=== PATIENT | female | born 1945 | race Caucasian/White ===

== ENCOUNTER 2019-10-07 15:38 | Inpatient (IN) | payer MEDICARE ==
[~2019-10-07] VITALS: Ht 152.4 cm; Wt 70.3 kg
[2019-10-07 16:39] LABS: BG BASE EXCESS -26.6 mmol/L (-2.0-2.0); BG CARBOXYHEMOGLOBIN 0.1 % (0.5-1.5); BG DEOXYHEMOGLOBIN 2.3 % (0.0-5.0); BG FRACTION INSPIRED OXYGEN 21; BG HCO3 ACT 2.8 mmol/L (22.0-26.0); BG METHEMOGLOBIN 0.3 % (0.0-1.5); BG OXYGEN SATURATION 97.7 % (92.0-98.5); BG OXYHEMOGLOBIN 97.3 % (94.0-97.0); BG PCO2 11.6 mmHg (35.0-45.0); BG PH 6.999 (7.350-7.450); BG PO2 142.1 mmHg (75.0-100.0); BG SAMPLE SITE RIGHT RADIAL; BG TOTAL HEMOGLOBIN 11.1 g/dL (12.0-18.0); BG VENT MODE ROOM AIR
[2019-10-07] MEDS ORDERED: SODIUM CHLORIDE 0.9% 1,000 ML IV ONE (16:39)
[2019-10-07 16:50] LABS: BASOPHILS % 0.2 % (0.0-2.0); HEMATOCRIT. 33.9 % (36.0-48.0); HEMOGLOBIN. 10.9 g/dL (12.0-16.0); LYMPHOCYTES % 5.7 % (20.0-50.0); MEAN CORPUSCULAR HEMOGLOBIN 27.7 pg (28.0-32.0); MEAN CORPUSCULAR VOLUME 86.3 fL (81.0-99.0); MEAN PLATELET VOLUME 7.8 fl (7.4-10.4); MONOCYTES % 4.3 % (2.0-8.0); NEUTROPHILS % 89.8 % (40.0-76.0); PLATELET 217 x1000/uL (130-400); RED BLOOD CELL COUNT 3.92 mill/uL (4.2-5.4); RED CELL DISTRIBUTION WIDTH 17.6 % (11.6-14.6)
[2019-10-07 16:54] LABS: CHLORIDE 115 mEq/L (98-107)
[2019-10-07 17:06] LABS: D-DIMER 20.41 mg/L FEU (<0.50); INR 1.1; PROTHROMBIN TIME 11.2 sec (9.6-11.0)
[2019-10-07 17:17] LABS: CLARITY URINE CLEAR (CLEAR); COLOR URINE YELLOW (YELLOW); KETONES URINE TRACE (NEGATIVE); LEUKOCYTE ESTERASE URINE NEGATIVE (NEGATIVE); NITRITE URINE NEGATIVE (NEGATIVE); OCCULT BLOOD URINE TRACE (NEGATIVE); PROTEIN URINE 3+ (NEGATIVE); SPECIFIC GRAVITY URINE 1.015 (1.005-1.030); UROBILINOGEN URINE 0.2 E.U./dL (0.2-1.0)
[2019-10-07] MEDS ORDERED: DEXTROSE 50% WATER 50ML SYRINGE IV ONE (17:45)
[2019-10-07] MEDS ORDERED: INSULIN REGULAR (HUMULIN R) 300UNITS/3ML IV ONE (17:45)
[2019-10-07] MEDS ORDERED: SODIUM BICARBONATE 8.4% 1 MEQ/ML 50ML SYR IV ONE (17:45)
[2019-10-07] MEDS ORDERED: CALCIUM CHLORIDE 1GM/10ML SYR IV ONE (17:45)
[2019-10-07] MEDS ORDERED: PIPERACILLIN/TAZ 3.375G PREMIX 50 ML IV ONE (17:45)
[2019-10-07] MEDS ORDERED: ALBUTEROL (0.083%) 2.5MG/3ML NEB HHN ONE (17:45)
[2019-10-07] MEDS ORDERED: PIPERACILLIN/TAZOBACTAM 3.375 G in DEXT 5% WATER 100 ML IV SCH (18:30)
[2019-10-07] MEDS ORDERED: CLONIDINE 0.1MG TABLET PO PRN (19:15)
[2019-10-07] MEDS ORDERED: ONDANSETRON HCL 4MG/2ML INJ IV PRN (19:15)
[2019-10-07] MEDS ORDERED: HYDRALAZINE 20MG/ML VIAL IV PRN (19:30)
[2019-10-07] MEDS ORDERED: CEFTRIAXONE 1 G PREMIX 50 ML IV SCH (20:00)
[2019-10-07 20:24] LABS: C REACTIVE PROTEIN CARDIAC 6.7 mg/L (0.00-3.00)
[2019-10-07] MEDS ORDERED: SODIUM POLYSTYRENE SULFONATE 15 G/60 ML BOT NG NR (20:34)
[2019-10-07 20:36] LABS: PHOSPHORUS 13.7 mg/dL (2.5-4.9)
[2019-10-07] MEDS ORDERED: AZITHROMYCIN 500 MG in DEXT 5% WATER 250 ML IV SCH (21:00)
[2019-10-07] MEDS: ENOXAPARIN 30MG/0.3ML SYR SUBCUT SCH (21:40)
[2019-10-07] MEDS: SODIUM BICARBONATE 150 MEQ in DEXTROSE 5% WATER 1,000 ML IV SCH (21:49)
[2019-10-07] MEDS ORDERED: SODIUM CHLORIDE 0.9% 250 ML IV NR (23:14)
[2019-10-08] MEDS: NOREPINEPHRINE 8MG in DEXT 5% WATER 250ML (DOUBLE CONC) IV PRN (00:05)
[2019-10-08 05:46] LABS: HEMATOCRIT. 38.9 % (36.0-48.0); HEMOGLOBIN. 12.4 g/dL (12.0-16.0); MEAN CORPUSCULAR HEMOGLOBIN 28.1 pg (28.0-32.0); MEAN PLATELET VOLUME 7.8 fl (7.4-10.4); PLATELET 207 x1000/uL (130-400); RED BLOOD CELL COUNT 4.42 mill/uL (4.2-5.4); RED CELL DISTRIBUTION WIDTH 17.7 % (11.6-14.6)
[2019-10-08 05:53] LABS: CHLORIDE 116 mEq/L (98-107)
[2019-10-08 06:01] LABS: HDL CHOLESTEROL 45 mg/dL (40-59); LDL CHOLESTEROL 47 mg/dL (5-100)
[2019-10-08 06:02] LABS: CREATINE KINASE 316 IU/L (26-192)
[2019-10-08 06:03] LABS: CREATINE KINASE MB FRACTION 15.9 ng/mL (0.5-3.6)
[2019-10-08 06:18] LABS: PHOSPHORUS 11.8 mg/dL (2.5-4.9)
[2019-10-08] MEDS ORDERED: SODIUM BICARBONATE 8.4% 1 MEQ/ML 50ML SYR IV ONE (08:15)
[2019-10-08] MEDS ORDERED: INSULIN REGULAR (DRIP) 100 UNITS in SODIUM CHLORIDE 0.9% 99 ML IV ONE (08:15)
[2019-10-08] MEDS ORDERED: HYDRALAZINE 20MG/ML VIAL IV PRN (08:15)
[2019-10-08 10:05] LABS: BG BASE EXCESS -20.3 mmol/L (-2.0-2.0); BG CARBOXYHEMOGLOBIN 0.4 % (0.5-1.5); BG DEOXYHEMOGLOBIN 1.3 % (0.0-5.0); BG FRACTION INSPIRED OXYGEN 44; BG HCO3 ACT 5.5 mmol/L (22.0-26.0); BG METHEMOGLOBIN 0.3 % (0.0-1.5); BG OXYGEN SATURATION 98.7 % (92.0-98.5); BG PCO2 14.3 mmHg (35.0-45.0); BG PH 7.203 (7.350-7.450); BG PO2 203.3 mmHg (75.0-100.0); BG SAMPLE SITE RIGHT RADIAL; BG TOTAL HEMOGLOBIN 10.4 g/dL (12.0-18.0); BG VENT MODE NASAL CANNULA
[2019-10-08] MEDS: ASPIRIN 81MG TABLET PO SCH (10:15)
[2019-10-08 11:27] LABS: NUCLEATED RED BLOOD CELLS 3 /100 WBC; PLATELET ESTIMATE NORMAL
[2019-10-08] MEDS ORDERED: SODIUM CHLORIDE 0.9% 1,000 ML IV ONE (12:00)
[2019-10-08] MEDS ORDERED: SODIUM BICARBONATE 8.4% 1 MEQ/ML 50ML SYR IV NR ×2 (12:00)
[2019-10-08 12:43] LABS: BG BASE EXCESS -6.2 mmol/L (-2.0-2.0); BG CARBOXYHEMOGLOBIN 0.3 % (0.5-1.5); BG DEOXYHEMOGLOBIN 1.7 % (0.0-5.0); BG FRACTION INSPIRED OXYGEN 44; BG HCO3 ACT 14.4 mmol/L (22.0-26.0); BG METHEMOGLOBIN 0.3 % (0.0-1.5); BG OXYGEN SATURATION 98.3 % (92.0-98.5); BG OXYHEMOGLOBIN 97.7 % (94.0-97.0); BG PCO2 16.9 mmHg (35.0-45.0); BG PH 7.547 (7.350-7.450); BG PO2 178.8 mmHg (75.0-100.0); BG SAMPLE SITE RIGHT RADIAL; BG TOTAL HEMOGLOBIN 9.9 g/dL (12.0-18.0); BG VENT MODE NASAL CANNULA
[2019-10-08] MEDS: SODIUM BICARBONATE 150 MEQ in DEXTROSE 5% WATER 1,000 ML IV SCH ×2 (12:50→13:00)
[2019-10-08] MEDS ORDERED: CEFTRIAXONE 1 G PREMIX 50 ML IV SCH (20:00)
[2019-10-08 20:54] LABS: BG BASE EXCESS -20.2 mmol/L (-2.0-2.0); BG CARBOXYHEMOGLOBIN 0.7 % (0.5-1.5); BG DEOXYHEMOGLOBIN 0.9 % (0.0-5.0); BG FRACTION INSPIRED OXYGEN 100; BG HCO3 ACT 4.8 mmol/L (22.0-26.0); BG METHEMOGLOBIN 0.3 % (0.0-1.5); BG OXYGEN SATURATION 99.1 % (92.0-98.5); BG OXYHEMOGLOBIN 98.1 % (94.0-97.0); BG PCO2 11.6 mmHg (35.0-45.0); BG PH 7.238 (7.350-7.450); BG PO2 454.2 mmHg (75.0-100.0); BG SAMPLE SITE RIGHT RADIAL; BG TOTAL HEMOGLOBIN 10.2 g/dL (12.0-18.0); BG VENT MODE MASK - NRB
[2019-10-08] MEDS ORDERED: AZITHROMYCIN 500 MG in DEXT 5% WATER 250 ML IV SCH (21:00)
[2019-10-08] MEDS: ENOXAPARIN 30MG/0.3ML SYR SUBCUT SCH (21:20)
[2019-10-08 23:58] LABS: CHLORIDE 120 mEq/L (98-107)
[2019-10-09] VITALS (110 sets, daily range): BP systolic 41–166; BP diastolic 23–97
[2019-10-09] LABS: HEMATOCRIT 32.4 % (36.0-48.0); HEMOGLOBIN 10.7 g/dL (12.0-16.0); MEAN CORPUSCULAR HEMOGLOBIN 28.2 pg (28.0-32.0); MEAN CORPUSCULAR VOLUME 84.9 fL (81.0-99.0); PLATELET 107 x1000/uL (130-400); RED BLOOD CELL COUNT 3.81 mill/uL (4.2-5.4); RED CELL DISTRIBUTION WIDTH 17.7 % (11.6-14.6)
[2019-10-09 00:06] LABS: BETA HYDROXYBUTYRATE 0.1 mMol/L (0.0-0.3)
[2019-10-09] MEDS: SODIUM BICARBONATE 150 MEQ in DEXTROSE 5% WATER 1,000 ML IV SCH ×2 (02:12→19:00)
[2019-10-09] MEDS ORDERED: CALCIUM GLUCONATE 1,000 MG in DEXT 5% WATER 90 ML IV ONE (02:30)
[2019-10-09] MEDS: NOREPINEPHRINE 8MG in DEXT 5% WATER 250ML (DOUBLE CONC) IV PRN ×3 (02:38→10:53)
[2019-10-09] MEDS ORDERED: CALCIUM GLUCONATE 1,000 MG in DEXT 5% WATER 90 ML IV SCH ×3 (03:00→20:00)
[2019-10-09] MEDS: PHENYLEPHRINE 40 MG in DEXT 5% WATER 246 ML IV PRN ×2 (07:28→10:52)
[2019-10-09] MEDS: ASPIRIN 81MG TABLET PO SCH (09:00)
[2019-10-09] MEDS ORDERED: INSULIN REGULAR (DRIP) 100 UNITS in SODIUM CHLORIDE 0.9% 100 ML IV SCH (09:08)
[2019-10-09] MEDS: BLOOD SUGAR DIAGNOSTIC STRIP TEST SCH ×14 (09:15→23:15)
[2019-10-09] MEDS ORDERED: DEXTROSE 50% WATER 50ML SYRINGE IV PRN ×2 (09:15)
[2019-10-09 09:33] LABS: BG BASE EXCESS -13.9 mmol/L (-2.0-2.0); BG CARBOXYHEMOGLOBIN 1.7 % (0.5-1.5); BG DEOXYHEMOGLOBIN 1.7 % (0.0-5.0); BG FRACTION INSPIRED OXYGEN 50; BG HCO3 ACT 10.4 mmol/L (22.0-26.0); BG METHEMOGLOBIN 0.1 % (0.0-1.5); BG OXYGEN SATURATION 98.3 % (92.0-98.5); BG OXYHEMOGLOBIN 96.5 % (94.0-97.0); BG PCO2 19.6 mmHg (35.0-45.0); BG PH 7.341 (7.350-7.450); BG PO2 138.8 mmHg (75.0-100.0); BG SAMPLE SITE RIGHT RADIAL; BG TOTAL HEMOGLOBIN 7.6 g/dL (12.0-18.0); BG VENT MODE MASK - VENTI
[2019-10-09 10:06] LABS: BASOPHILS % 0.1 % (0.0-2.0); EOSINOPHILS % 0.1 % (0.0-5.0); HEMATOCRIT. 28.2 % (36.0-48.0); HEMOGLOBIN. 9.9 g/dL (12.0-16.0); LYMPHOCYTES % 8.4 % (20.0-50.0); MEAN CORPUSCULAR HEMOGLOBIN 28.6 pg (28.0-32.0); MEAN CORPUSCULAR VOLUME 81.3 fL (81.0-99.0); MEAN PLATELET VOLUME 8.1 fl (7.4-10.4); MONOCYTES % 5.2 % (2.0-8.0); NEUTROPHILS % 86.2 % (40.0-76.0); PLATELET 79 x1000/uL (130-400); RED BLOOD CELL COUNT 3.47 mill/uL (4.2-5.4); RED CELL DISTRIBUTION WIDTH 17.1 % (11.6-14.6)
[2019-10-09 10:16] LABS: CHLORIDE 111 mEq/L (98-107)
[2019-10-09 10:22] LABS: PHOSPHORUS 6.1 mg/dL (2.5-4.9)
[2019-10-09] MEDS ORDERED: POTASSIUM CHLORIDE INJ 40 MEQ in DEXT 5% WATER 250 ML IV SCH ×2 (11:00→20:00)
[2019-10-09 12:05] LABS: CREATINE KINASE 548 IU/L (26-192)
[2019-10-09] MEDS ORDERED: LEVOFLOXACIN 500MG PREMIX 100 ML IV SCH ×2 (13:30→15:00)
[2019-10-09 13:37] LABS: BG BASE EXCESS -13.7 mmol/L (-2.0-2.0); BG CARBOXYHEMOGLOBIN 1.1 % (0.5-1.5); BG DEOXYHEMOGLOBIN 2.4 % (0.0-5.0); BG FRACTION INSPIRED OXYGEN 50; BG HCO3 ACT 10.9 mmol/L (22.0-26.0); BG METHEMOGLOBIN 0.3 % (0.0-1.5); BG OXYGEN SATURATION 97.6 % (92.0-98.5); BG OXYHEMOGLOBIN 96.2 % (94.0-97.0); BG PCO2 21.8 mmHg (35.0-45.0); BG PH 7.316 (7.350-7.450); BG PO2 116.1 mmHg (75.0-100.0); BG SAMPLE SITE RIGHT RADIAL; BG TOTAL HEMOGLOBIN 8.6 g/dL (12.0-18.0); BG VENT MODE MASK - VENTI
[2019-10-09] MEDS ORDERED: IPRATROPIUM/ALBUTEROL 0.5-3(2.5)MG/3ML NEB HHN PRN (13:45)
[2019-10-09 14:33] LABS: CHLORIDE 111 mEq/L (98-107)
[2019-10-09] MEDS: FAMOTIDINE 20MG/2ML VIAL IV SCH (15:24)
[2019-10-09] MEDS: PROPOFOL 10MG/ML 100ML 100 ML IV PRN ×2 (15:38→21:17)
[2019-10-09] MEDS: PHENYLEPHRINE 80 MG in DEXT 5% WATER 492 ML IV PRN ×2 (15:40→23:30)
[2019-10-09] MEDS ORDERED: VANCOMYCIN 1500MG in DEXTROSE 5% WATER 250ML IV SCH (16:00)
[2019-10-09 16:18] LABS: BG BASE EXCESS -16.1 mmol/L (-2.0-2.0); BG CARBOXYHEMOGLOBIN 0.7 % (0.5-1.5); BG DEOXYHEMOGLOBIN 2.1 % (0.0-5.0); BG FRACTION INSPIRED OXYGEN 60; BG HCO3 ACT 10.7 mmol/L (22.0-26.0); BG METHEMOGLOBIN 0.3 % (0.0-1.5); BG OXYGEN SATURATION 97.9 % (92.0-98.5); BG OXYHEMOGLOBIN 96.9 % (94.0-97.0); BG PCO2 28.2 mmHg (35.0-45.0); BG PH 7.195 (7.350-7.450); BG PO2 134.8 mmHg (75.0-100.0); BG SAMPLE SITE RIGHT RADIAL; BG TIDAL VOLUME(mL) 500 mL; BG TOTAL HEMOGLOBIN 9.3 g/dL (12.0-18.0); BG VENT MODE VENT - A/C; BG VENT RATE 12 set
[2019-10-09] MEDS ORDERED: SODIUM BICARBONATE 8.4% 1 MEQ/ML 50ML SYR IV NR (17:00)
[2019-10-09] MEDS ORDERED: POTASSIUM CHLORIDE INJ 40 MEQ in DEXT 5% WATER 250 ML IV NR (18:00)
[2019-10-09] MEDS ORDERED: LACTULOSE 20G/30ML UDC PO NR (18:00)
[2019-10-09 19:12] LABS: BG BASE EXCESS -11.2 mmol/L (-2.0-2.0); BG CARBOXYHEMOGLOBIN 0.8 % (0.5-1.5); BG DEOXYHEMOGLOBIN 1.1 % (0.0-5.0); BG FRACTION INSPIRED OXYGEN 60; BG HCO3 ACT 13.6 mmol/L (22.0-26.0); BG METHEMOGLOBIN 0.3 % (0.0-1.5); BG OXYGEN SATURATION 98.9 % (92.0-98.5); BG OXYHEMOGLOBIN 97.8 % (94.0-97.0); BG PCO2 27.1 mmHg (35.0-45.0); BG PO2 230.3 mmHg (75.0-100.0); BG SAMPLE SITE RIGHT RADIAL; BG TIDAL VOLUME(mL) 500 mL; BG TOTAL HEMOGLOBIN 8.6 g/dL (12.0-18.0); BG VENT MODE VENT - A/C; BG VENT RATE 12 set
[2019-10-09] MEDS: IPRATROPIUM/ALBUTEROL 0.5-3(2.5)MG/3ML NEB HHN SCH (20:49)
[2019-10-09] MEDS: NOREPINEPHRINE 32 MG in DEXT 5% WATER 468 ML IV PRN (21:19)
[2019-10-10] VITALS (95 sets, daily range): BP systolic 79–136; BP diastolic 37–89
[2019-10-10] MEDS: BLOOD SUGAR DIAGNOSTIC STRIP TEST SCH ×12 (00:15→18:00)
[2019-10-10] MEDS: IPRATROPIUM/ALBUTEROL 0.5-3(2.5)MG/3ML NEB HHN SCH ×4 (01:12→20:23)
[2019-10-10] MEDS: PROPOFOL 10MG/ML 100ML 100 ML IV PRN ×2 (06:00→12:04)
[2019-10-10] MEDS: SODIUM BICARBONATE 150 MEQ in DEXTROSE 5% WATER 1,000 ML IV SCH ×2 (06:01→21:08)
[2019-10-10 06:21] LABS: CHLORIDE 104 mEq/L (98-107)
[2019-10-10 06:23] LABS: BASOPHILS % 0.2 % (0.0-2.0); EOSINOPHILS % 0.6 % (0.0-5.0); HEMATOCRIT. 23.8 % (36.0-48.0); HEMOGLOBIN. 8.3 g/dL (12.0-16.0); LYMPHOCYTES % 10.6 % (20.0-50.0); MEAN CORPUSCULAR VOLUME 80.2 fL (81.0-99.0); MEAN PLATELET VOLUME 8.5 fl (7.4-10.4); MONOCYTES % 3.5 % (2.0-8.0); NEUTROPHILS % 85.1 % (40.0-76.0); PLATELET 59 x1000/uL (130-400); RED BLOOD CELL COUNT 2.97 mill/uL (4.2-5.4); RED CELL DISTRIBUTION WIDTH 17.6 % (11.6-14.6)
[2019-10-10 06:28] LABS: PHOSPHORUS 5.7 mg/dL (2.5-4.9)
[2019-10-10 06:30] LABS: CREATINE KINASE 549 IU/L (26-192)
[2019-10-10] MEDS: PHENYLEPHRINE 80 MG in DEXT 5% WATER 492 ML IV PRN ×3 (06:52→21:55)
[2019-10-10] MEDS ORDERED: MAGNESIUM 2 G PREMIX 50 ML IV NR (08:00)
[2019-10-10 08:14] LABS: BG BASE EXCESS -10.9 mmol/L (-2.0-2.0); BG CARBOXYHEMOGLOBIN 0.8 % (0.5-1.5); BG DEOXYHEMOGLOBIN 4.7 % (0.0-5.0); BG FRACTION INSPIRED OXYGEN 60; BG HCO3 ACT 13.1 mmol/L (22.0-26.0); BG METHEMOGLOBIN 0.3 % (0.0-1.5); BG OXYGEN SATURATION 95.2 % (92.0-98.5); BG OXYHEMOGLOBIN 94.2 % (94.0-97.0); BG PCO2 23.2 mmHg (35.0-45.0); BG PH 7.369 (7.350-7.450); BG SAMPLE SITE RIGHT RADIAL; BG TIDAL VOLUME(mL) 50 mL; BG TOTAL HEMOGLOBIN 8.3 g/dL (12.0-18.0); BG VENT MODE VENT - A/C; BG VENT RATE 12 set
[2019-10-10] MEDS: ASPIRIN 81MG TABLET PO SCH (09:32)
[2019-10-10] MEDS: FAMOTIDINE 20MG/2ML VIAL IV SCH (09:32)
[2019-10-10] MEDS ORDERED: DEXTROSE 50% WATER 50ML SYRINGE IV PRN (11:30)
[2019-10-10] MEDS: INSULIN LISPRO 100 UNITS/ML SUBCUT SCH ×2 (12:00→18:00)
[2019-10-10] MEDS ORDERED: VANCOMYCIN 500 MG PREMIX 100 ML IV SCH (13:00)
[2019-10-11] VITALS (86 sets, daily range): BP systolic 73–149; BP diastolic 43–95
[2019-10-11] MEDS: BLOOD SUGAR DIAGNOSTIC STRIP TEST SCH ×4 (00:58→17:25)
[2019-10-11] MEDS: PROPOFOL 10MG/ML 100ML 100 ML IV PRN ×3 (01:06→22:04)
[2019-10-11] MEDS: NOREPINEPHRINE 32 MG in DEXT 5% WATER 468 ML IV PRN (04:15)
[2019-10-11] MEDS: PHENYLEPHRINE 80 MG in DEXT 5% WATER 492 ML IV PRN ×2 (05:07→12:24)
[2019-10-11 05:43] LABS: HEMATOCRIT. 22.7 % (36.0-48.0); HEMOGLOBIN. 7.9 g/dL (12.0-16.0); MEAN CORPUSCULAR HEMOGLOBIN 27.8 pg (28.0-32.0); MEAN CORPUSCULAR VOLUME 79.9 fL (81.0-99.0); RED BLOOD CELL COUNT 2.85 mill/uL (4.2-5.4); RED CELL DISTRIBUTION WIDTH 17.8 % (11.6-14.6)
[2019-10-11 05:47] LABS: CHLORIDE 106 mEq/L (98-107)
[2019-10-11 05:52] LABS: PHOSPHORUS 4.6 mg/dL (2.5-4.9)
[2019-10-11] MEDS: INSULIN LISPRO 100 UNITS/ML SUBCUT SCH ×4 (06:00→17:25)
[2019-10-11] MEDS: IPRATROPIUM/ALBUTEROL 0.5-3(2.5)MG/3ML NEB HHN SCH ×4 (06:00→20:30)
[2019-10-11 06:46] LABS: PLATELET 43 x1000/uL (130-400)
[2019-10-11] MEDS: ASPIRIN 81MG TABLET PO SCH (08:44)
[2019-10-11] MEDS: FAMOTIDINE 20MG/2ML VIAL IV SCH (08:44)
[2019-10-11 08:53] LABS: BG BASE EXCESS 0.3 mmol/L (-2.0-2.0); BG CARBOXYHEMOGLOBIN 0.7 % (0.5-1.5); BG DEOXYHEMOGLOBIN 1.1 % (0.0-5.0); BG FRACTION INSPIRED OXYGEN 60; BG HCO3 ACT 23.6 mmol/L (22.0-26.0); BG METHEMOGLOBIN 0.3 % (0.0-1.5); BG OXYGEN SATURATION 98.9 % (92.0-98.5); BG OXYHEMOGLOBIN 97.9 % (94.0-97.0); BG PCO2 32.3 mmHg (35.0-45.0); BG PH 7.482 (7.350-7.450); BG PO2 240.6 mmHg (75.0-100.0); BG SAMPLE SITE RIGHT RADIAL; BG TIDAL VOLUME(mL) 500 mL; BG VENT MODE VENT - A/C; BG VENT RATE 12 set
[2019-10-11] MEDS ORDERED: CEFEPIME 1,000 MG in DEXTROSE 5% WATER 50 ML IV SCH (10:30)
[2019-10-11] MEDS ORDERED: MAGNESIUM 2 G PREMIX 50 ML IV SCH (11:00)
[2019-10-11] MEDS ORDERED: LEVOFLOXACIN 250MG PREMIX 50 ML IV SCH (11:00)
[2019-10-11] MEDS: CEFEPIME 1,000 MG in DEXTROSE 5% WATER 50 ML IV SCH (12:24)
[2019-10-11] MEDS ORDERED: VANCOMYCIN 1250MG in DEXTROSE 5% WATER 250ML IV SCH (13:30)
[2019-10-11] MEDS: SODIUM BICARBONATE 150 MEQ in DEXTROSE 5% WATER 1,000 ML IV SCH (13:33)
[2019-10-11 14:16] LABS: PLATELET ESTIMATE MARKEDLY DECREASED
[2019-10-12] VITALS (86 sets, daily range): BP systolic 88–139; BP diastolic 48–104
[2019-10-12] MEDS: PHENYLEPHRINE 80 MG in DEXT 5% WATER 492 ML IV PRN ×2 (00:27→15:30)
[2019-10-12] MEDS: IPRATROPIUM/ALBUTEROL 0.5-3(2.5)MG/3ML NEB HHN SCH ×5 (00:28→20:39)
[2019-10-12] MEDS: SODIUM BICARBONATE 150 MEQ in DEXTROSE 5% WATER 1,000 ML IV SCH (04:32)
[2019-10-12 05:29] LABS: HEMATOCRIT. 21.2 % (36.0-48.0); HEMOGLOBIN. 7.2 g/dL (12.0-16.0); MEAN CORPUSCULAR HEMOGLOBIN 27.2 pg (28.0-32.0); MEAN CORPUSCULAR VOLUME 80.4 fL (81.0-99.0); MEAN PLATELET VOLUME 8.9 fl (7.4-10.4); RED BLOOD CELL COUNT 2.64 mill/uL (4.2-5.4); RED CELL DISTRIBUTION WIDTH 17.8 % (11.6-14.6)
[2019-10-12 05:50] LABS: CHLORIDE 97 mEq/L (98-107)
[2019-10-12 05:54] LABS: PHOSPHORUS 4.6 mg/dL (2.5-4.9)
[2019-10-12] MEDS: INSULIN LISPRO 100 UNITS/ML SUBCUT SCH ×4 (06:00→18:00)
[2019-10-12] MEDS: BLOOD SUGAR DIAGNOSTIC STRIP TEST SCH ×4 (06:07→18:03)
[2019-10-12 07:04] LABS: PLATELET 28 x1000/uL (130-400)
[2019-10-12] MEDS: FAMOTIDINE 20MG/2ML VIAL IV SCH (08:45)
[2019-10-12 09:19] LABS: BG BASE EXCESS 2.5 mmol/L (-2.0-2.0); BG CARBOXYHEMOGLOBIN 0.9 % (0.5-1.5); BG DEOXYHEMOGLOBIN 0.7 % (0.0-5.0); BG FRACTION INSPIRED OXYGEN 60; BG HCO3 ACT 25.6 mmol/L (22.0-26.0); BG METHEMOGLOBIN 0.2 % (0.0-1.5); BG OXYGEN SATURATION 99.3 % (92.0-98.5); BG OXYHEMOGLOBIN 98.2 % (94.0-97.0); BG PCO2 32.6 mmHg (35.0-45.0); BG PH 7.513 (7.350-7.450); BG PO2 254.9 mmHg (75.0-100.0); BG SAMPLE SITE LEFT RADIAL; BG TIDAL VOLUME(mL) 500 mL; BG TOTAL HEMOGLOBIN 6.8 g/dL (12.0-18.0); BG VENT MODE VENT - A/C; BG VENT RATE 12 set
[2019-10-12 11:29] LABS: PLATELET ESTIMATE MARKEDLY DECREASED
[2019-10-12] MEDS: CEFEPIME 1,000 MG in DEXTROSE 5% WATER 50 ML IV SCH (11:49)
[2019-10-13] VITALS (58 sets, daily range): BP systolic 89–155; BP diastolic 43–73
[2019-10-13] MEDS: IPRATROPIUM/ALBUTEROL 0.5-3(2.5)MG/3ML NEB HHN SCH ×4 (01:53→21:04)
[2019-10-13 05:45] LABS: CHLORIDE 99 mEq/L (98-107)
[2019-10-13 05:52] LABS: PHOSPHORUS 4.1 mg/dL (2.5-4.9)
[2019-10-13] MEDS: INSULIN LISPRO 100 UNITS/ML SUBCUT SCH ×4 (06:00→18:00)
[2019-10-13] MEDS: BLOOD SUGAR DIAGNOSTIC STRIP TEST SCH ×4 (06:38→18:00)
[2019-10-13] MEDS: FAMOTIDINE 20MG/2ML VIAL IV SCH (09:00)
[2019-10-13 09:33] LABS: HEMATOCRIT. 21.1 % (36.0-48.0); HEMOGLOBIN. 7.2 g/dL (12.0-16.0); MEAN CORPUSCULAR HEMOGLOBIN 27.8 pg (28.0-32.0); MEAN CORPUSCULAR VOLUME 81.3 fL (81.0-99.0); MEAN PLATELET VOLUME 8.8 fl (7.4-10.4); RED CELL DISTRIBUTION WIDTH 17.6 % (11.6-14.6)
[2019-10-13 09:45] LABS: PLATELET 14 x1000/uL (130-400)
[2019-10-13] MEDS ORDERED: ALBUMIN HUMAN 25GM/100ML (25%) IV NR (10:00)
[2019-10-13 13:32] LABS: PLATELET ESTIMATE MARKEDLY DECREASED
[2019-10-13] MEDS: CEFEPIME 1,000 MG in DEXTROSE 5% WATER 50 ML IV SCH (14:35)
[2019-10-13 16:08] LABS: BG BASE EXCESS -0.1 mmol/L (-2.0-2.0); BG CARBOXYHEMOGLOBIN 0.7 % (0.5-1.5); BG DEOXYHEMOGLOBIN 1.1 % (0.0-5.0); BG FRACTION INSPIRED OXYGEN 50; BG HCO3 ACT 23.2 mmol/L (22.0-26.0); BG METHEMOGLOBIN 0.3 % (0.0-1.5); BG OXYGEN SATURATION 98.9 % (92.0-98.5); BG OXYHEMOGLOBIN 97.9 % (94.0-97.0); BG PCO2 31.4 mmHg (35.0-45.0); BG PH 7.486 (7.350-7.450); BG PO2 183.3 mmHg (75.0-100.0); BG PRESSURE SUPPORT 10; BG SAMPLE SITE RIGHT RADIAL; BG TOTAL HEMOGLOBIN 6.6 g/dL (12.0-18.0); BG VENT MODE VENT - CPAP
[2019-10-13] MEDS ORDERED: MORPHINE SULFATE 2 MG/ML CPJ (NOT FOR IM USE) IV PRN (16:30)
[2019-10-13] MEDS ORDERED: LORAZEPAM 2MG/ML CPJ IV PRN (16:30)
[2019-10-14] VITALS (24 sets, daily range): BP systolic 109–163; BP diastolic 43–106
[2019-10-14] MEDS: INSULIN LISPRO 100 UNITS/ML SUBCUT SCH ×4 (00:04→17:14)
[2019-10-14] MEDS: BLOOD SUGAR DIAGNOSTIC STRIP TEST SCH ×4 (00:04→17:14)
[2019-10-14] MEDS: ACETAMINOPHEN 325MG TABLET PO PRN (00:04)
[2019-10-14] MEDS: IPRATROPIUM/ALBUTEROL 0.5-3(2.5)MG/3ML NEB HHN SCH ×4 (01:08→22:40)
[2019-10-14 06:04] LABS: MEAN CORPUSCULAR HEMOGLOBIN 27.5 pg (28.0-32.0); MEAN PLATELET VOLUME 10.3 fl (7.4-10.4); RED BLOOD CELL COUNT 2.43 mill/uL (4.2-5.4); RED CELL DISTRIBUTION WIDTH 18.4 % (11.6-14.6)
[2019-10-14 06:13] LABS: PHOSPHORUS 3.2 mg/dL (2.5-4.9)
[2019-10-14 06:27] LABS: HEMATOCRIT. 19.9 % (36.0-48.0); HEMOGLOBIN. 6.7 g/dL (12.0-16.0)
[2019-10-14 06:28] LABS: PLATELET 8 x1000/uL (130-400)
[2019-10-14] MEDS: FAMOTIDINE 20MG/2ML VIAL IV SCH (09:09)
[2019-10-14 09:48] LABS: BG BASE EXCESS 2.6 mmol/L (-2.0-2.0); BG CARBOXYHEMOGLOBIN 1.3 % (0.5-1.5); BG DEOXYHEMOGLOBIN 1.7 % (0.0-5.0); BG FRACTION INSPIRED OXYGEN 40; BG HCO3 ACT 26.6 mmol/L (22.0-26.0); BG METHEMOGLOBIN 0.3 % (0.0-1.5); BG OXYGEN SATURATION 98.3 % (92.0-98.5); BG OXYHEMOGLOBIN 96.7 % (94.0-97.0); BG PCO2 37.8 mmHg (35.0-45.0); BG PH 7.465 (7.350-7.450); BG PRESSURE SUPPORT 10; BG SAMPLE SITE RIGHT RADIAL; BG TOTAL HEMOGLOBIN 6.6 g/dL (12.0-18.0); BG VENT MODE VENT - CPAP
[2019-10-14 10:06] LABS: NUCLEATED RED BLOOD CELLS 2 /100 WBC; PLATELET ESTIMATE MARKEDLY DECREASED
[2019-10-14] MEDS: CEFEPIME 1,000 MG in DEXTROSE 5% WATER 50 ML IV SCH (11:58)
[2019-10-14] MEDS: PANTOPRAZOLE SODIUM 40 MG/VIAL IV SCH (17:26)
[2019-10-14 17:43] LABS: BG BASE EXCESS 3.2 mmol/L (-2.0-2.0); BG DEOXYHEMOGLOBIN 1.3 % (0.0-5.0); BG FRACTION INSPIRED OXYGEN 40; BG HCO3 ACT 26.9 mmol/L (22.0-26.0); BG METHEMOGLOBIN 0.3 % (0.0-1.5); BG OXYGEN SATURATION 98.7 % (92.0-98.5); BG OXYHEMOGLOBIN 97.4 % (94.0-97.0); BG PCO2 36.3 mmHg (35.0-45.0); BG PH 7.487 (7.350-7.450); BG PO2 167.5 mmHg (75.0-100.0); BG SAMPLE SITE RIGHT RADIAL; BG TOTAL HEMOGLOBIN 5.7 g/dL (12.0-18.0); BG VENT MODE MASK - AEROSOL
[2019-10-15] VITALS (44 sets, daily range): BP systolic 68–162; BP diastolic 32–69
[2019-10-15] MEDS: IPRATROPIUM/ALBUTEROL 0.5-3(2.5)MG/3ML NEB HHN SCH ×3 (04:00→20:13)
[2019-10-15 06:18] LABS: PHOSPHORUS 4.3 mg/dL (2.5-4.9)
[2019-10-15] MEDS: BLOOD SUGAR DIAGNOSTIC STRIP TEST SCH ×5 (06:39→23:29)
[2019-10-15] MEDS: INSULIN LISPRO 100 UNITS/ML SUBCUT SCH ×4 (06:39→17:10)
[2019-10-15 08:06] LABS: BASOPHILS % 0.3 % (0.0-2.0); EOSINOPHILS % 0.8 % (0.0-5.0); LYMPHOCYTES % 9.1 % (20.0-50.0); MEAN CORPUSCULAR HEMOGLOBIN 27.8 pg (28.0-32.0); MEAN CORPUSCULAR VOLUME 84.3 fL (81.0-99.0); MEAN PLATELET VOLUME 10.6 fl (7.4-10.4); MONOCYTES % 5.4 % (2.0-8.0); NEUTROPHILS % 84.4 % (40.0-76.0); RED BLOOD CELL COUNT 2.33 mill/uL (4.2-5.4); RED CELL DISTRIBUTION WIDTH 18.4 % (11.6-14.6)
[2019-10-15] MEDS: PANTOPRAZOLE SODIUM 40 MG/VIAL IV SCH ×2 (08:11→17:23)
[2019-10-15 08:14] LABS: BG BASE EXCESS 0.8 mmol/L (-2.0-2.0); BG CARBOXYHEMOGLOBIN 1.4 % (0.5-1.5); BG DEOXYHEMOGLOBIN 1.8 % (0.0-5.0); BG FRACTION INSPIRED OXYGEN 32; BG METHEMOGLOBIN 0.2 % (0.0-1.5); BG OXYGEN SATURATION 98.2 % (92.0-98.5); BG OXYHEMOGLOBIN 96.6 % (94.0-97.0); BG PCO2 37.1 mmHg (35.0-45.0); BG PH 7.446 (7.350-7.450); BG PO2 112.9 mmHg (75.0-100.0); BG SAMPLE SITE RIGHT RADIAL; BG TOTAL HEMOGLOBIN 5.9 g/dL (12.0-18.0); BG VENT MODE NASAL CANNULA
[2019-10-15 08:17] LABS: HEMATOCRIT. 19.6 % (36.0-48.0); HEMOGLOBIN. 6.5 g/dL (12.0-16.0); PLATELET 11 x1000/uL (130-400)
[2019-10-15] MEDS: SILDENAFIL CITRATE 20MG TABLET PO SCH ×2 (11:27→17:23)
[2019-10-15] MEDS: CEFEPIME 1,000 MG in DEXTROSE 5% WATER 50 ML IV SCH (11:27)
[2019-10-15] MEDS: PHENYLEPHRINE 80 MG in DEXT 5% WATER 492 ML IV PRN (15:02)
[2019-10-15] MEDS ORDERED: EPOETIN ALFA 10000UNITS/ML VIAL SUBCUT SCH (21:00)
[2019-10-16] VITALS (88 sets, daily range): BP systolic 83–126; BP diastolic 34–82
[2019-10-16] MEDS: INSULIN LISPRO 100 UNITS/ML SUBCUT SCH ×5 (00:08→23:34)
[2019-10-16] MEDS: IPRATROPIUM/ALBUTEROL 0.5-3(2.5)MG/3ML NEB HHN SCH ×4 (01:54→20:25)
[2019-10-16] MEDS: BLOOD SUGAR DIAGNOSTIC STRIP TEST SCH ×4 (05:22→23:29)
[2019-10-16 05:53] LABS: BASOPHILS % 0.4 % (0.0-2.0); EOSINOPHILS % 0.8 % (0.0-5.0); LYMPHOCYTES % 12.1 % (20.0-50.0); MEAN CORPUSCULAR HEMOGLOBIN 28.1 pg (28.0-32.0); MEAN CORPUSCULAR VOLUME 83.9 fL (81.0-99.0); MEAN PLATELET VOLUME 9.5 fl (7.4-10.4); NEUTROPHILS % 77.7 % (40.0-76.0); RED BLOOD CELL COUNT 1.77 mill/uL (4.2-5.4); RED CELL DISTRIBUTION WIDTH 17.8 % (11.6-14.6)
[2019-10-16 06:07] LABS: PHOSPHORUS 3.6 mg/dL (2.5-4.9)
[2019-10-16 06:39] LABS: VITAMIN B12 SERUM > 2000.0 pg/mL (211-911)
[2019-10-16 07:12] LABS: HEMATOCRIT. 14.9 % (36.0-48.0)
[2019-10-16 07:13] LABS: PLATELET 15 x1000/uL (130-400)
[2019-10-16] MEDS: PANTOPRAZOLE SODIUM 40 MG/VIAL IV SCH ×2 (11:32→18:37)
[2019-10-16] MEDS: SILDENAFIL CITRATE 20MG TABLET PO SCH ×2 (11:32→18:37)
[2019-10-16] MEDS: CEFEPIME 1,000 MG in DEXTROSE 5% WATER 50 ML IV SCH (11:32)
[2019-10-16 15:23] LABS: BG BASE EXCESS 2.4 mmol/L (-2.0-2.0); BG CARBOXYHEMOGLOBIN 0.7 % (0.5-1.5); BG DEOXYHEMOGLOBIN 5.9 % (0.0-5.0); BG FRACTION INSPIRED OXYGEN 28; BG HCO3 ACT 25.9 mmol/L (22.0-26.0); BG METHEMOGLOBIN 0.3 % (0.0-1.5); BG OXYHEMOGLOBIN 93.1 % (94.0-97.0); BG PCO2 33.9 mmHg (35.0-45.0); BG PH 7.501 (7.350-7.450); BG PO2 66.3 mmHg (75.0-100.0); BG SAMPLE SITE RIGHT RADIAL; BG TOTAL HEMOGLOBIN 5.1 g/dL (12.0-18.0); BG VENT MODE NASAL CANNULA
[2019-10-16] MEDS: EPOETIN ALFA 10000UNITS/ML VIAL SUBCUT SCH (18:37)
[2019-10-16] MEDS ORDERED: EPOETIN ALFA 10000UNITS/ML VIAL SUBCUT SCH (21:00)
[2019-10-17] VITALS (84 sets, daily range): BP systolic 90–144; BP diastolic 33–118
[2019-10-17] MEDS: IPRATROPIUM/ALBUTEROL 0.5-3(2.5)MG/3ML NEB HHN SCH ×4 (02:15→20:02)
[2019-10-17] MEDS: BLOOD SUGAR DIAGNOSTIC STRIP TEST SCH ×4 (06:00→23:49)
[2019-10-17] MEDS: INSULIN LISPRO 100 UNITS/ML SUBCUT SCH ×4 (06:00→23:54)
[2019-10-17 07:01] LABS: MEAN CORPUSCULAR HEMOGLOBIN 28.5 pg (28.0-32.0); MEAN CORPUSCULAR VOLUME 86.9 fL (81.0-99.0); MEAN PLATELET VOLUME 10.7 fl (7.4-10.4); RED BLOOD CELL COUNT 1.59 mill/uL (4.2-5.4); RED CELL DISTRIBUTION WIDTH 17.9 % (11.6-14.6)
[2019-10-17 07:58] LABS: HEMOGLOBIN. 4.5 g/dL (12.0-16.0)
[2019-10-17 07:59] LABS: HEMATOCRIT. 13.8 % (36.0-48.0); PLATELET 29 x1000/uL (130-400)
[2019-10-17] MEDS: PHENYLEPHRINE 80 MG in DEXT 5% WATER 492 ML IV PRN (08:06)
[2019-10-17] MEDS: PANTOPRAZOLE SODIUM 40 MG/VIAL IV SCH ×2 (09:10→18:13)
[2019-10-17] MEDS: SILDENAFIL CITRATE 20MG TABLET PO SCH ×2 (09:11→18:13)
[2019-10-17 10:46] LABS: PLATELET ESTIMATE MARKEDLY DECREASED
[2019-10-17] MEDS: CEFEPIME 1,000 MG in DEXTROSE 5% WATER 50 ML IV SCH (18:12)
[2019-10-17] MEDS: EPOETIN ALFA 10000UNITS/ML VIAL SUBCUT SCH (21:44)
[2019-10-18] VITALS (90 sets, daily range): BP systolic 76–138; BP diastolic 30–66
[2019-10-18] MEDS: IPRATROPIUM/ALBUTEROL 0.5-3(2.5)MG/3ML NEB HHN SCH ×5 (02:10→21:19)
[2019-10-18] MEDS: BLOOD SUGAR DIAGNOSTIC STRIP TEST SCH ×3 (05:07→17:52)
[2019-10-18] MEDS: INSULIN LISPRO 100 UNITS/ML SUBCUT SCH ×3 (05:07→17:52)
[2019-10-18 05:51] LABS: MEAN CORPUSCULAR HEMOGLOBIN 28.3 pg (28.0-32.0); MEAN CORPUSCULAR VOLUME 88.1 fL (81.0-99.0); RED BLOOD CELL COUNT 1.76 mill/uL (4.2-5.4); RED CELL DISTRIBUTION WIDTH 18.1 % (11.6-14.6)
[2019-10-18 06:14] LABS: HEMATOCRIT 15.5 % (36.0-48.0)
[2019-10-18 06:15] LABS: PLATELET 41 x1000/uL (130-400)
[2019-10-18] MEDS: SILDENAFIL CITRATE 20MG TABLET PO SCH ×2 (08:32→17:51)
[2019-10-18] MEDS: PANTOPRAZOLE SODIUM 40 MG/VIAL IV SCH ×2 (08:32→17:51)
[2019-10-18] MEDS: CEFEPIME 1,000 MG in DEXTROSE 5% WATER 50 ML IV SCH (17:51)
[2019-10-18] MEDS: PHENYLEPHRINE 80 MG in DEXT 5% WATER 492 ML IV PRN (18:17)
[2019-10-18] MEDS ORDERED: MORPHINE SULFATE 2 MG/ML CPJ (NOT FOR IM USE) IV PRN (19:01)
[2019-10-18 21:26] LABS: BG BASE EXCESS 0.3 mmol/L (-2.0-2.0); BG CARBOXYHEMOGLOBIN 0.2 % (0.5-1.5); BG DEOXYHEMOGLOBIN 33.7 % (0.0-5.0); BG FRACTION INSPIRED OXYGEN 40; BG HCO3 ACT 24.9 mmol/L (22.0-26.0); BG METHEMOGLOBIN 0.2 % (0.0-1.5); BG OXYGEN SATURATION 66.2 % (92.0-98.5); BG OXYHEMOGLOBIN 65.9 % (94.0-97.0); BG PCO2 39.6 mmHg (35.0-45.0); BG PH 7.416 (7.350-7.450); BG SAMPLE SITE RIGHT RADIAL; BG TOTAL HEMOGLOBIN 4.6 g/dL (12.0-18.0); BG VENT MODE NASAL CANNULA
[2019-10-18] MEDS: EPOETIN ALFA 10000UNITS/ML VIAL SUBCUT SCH (21:45)
[2019-10-18 21:50] LABS: BG BASE EXCESS 2.3 mmol/L (-2.0-2.0); BG CARBOXYHEMOGLOBIN 0.8 % (0.5-1.5); BG FRACTION INSPIRED OXYGEN 40; BG HCO3 ACT 26.7 mmol/L (22.0-26.0); BG OXYHEMOGLOBIN 98.2 % (94.0-97.0); BG PCO2 40.7 mmHg (35.0-45.0); BG PH 7.435 (7.350-7.450); BG PO2 165.1 mmHg (75.0-100.0); BG SAMPLE SITE RIGHT RADIAL; BG VENT MODE NASAL CANNULA
[2019-10-19] VITALS (68 sets, daily range): BP systolic 97–150; BP diastolic 21–89
[2019-10-19] MEDS: INSULIN LISPRO 100 UNITS/ML SUBCUT SCH ×2 (00:42→05:54)
[2019-10-19] MEDS: BLOOD SUGAR DIAGNOSTIC STRIP TEST SCH ×2 (00:43→05:53)
[2019-10-19] MEDS: IPRATROPIUM/ALBUTEROL 0.5-3(2.5)MG/3ML NEB HHN SCH ×4 (02:03→22:36)
[2019-10-19 08:30] LABS: BG CARBOXYHEMOGLOBIN 0.6 % (0.5-1.5); BG DEOXYHEMOGLOBIN 3.5 % (0.0-5.0); BG FRACTION INSPIRED OXYGEN 28; BG HCO3 ACT 25.3 mmol/L (22.0-26.0); BG METHEMOGLOBIN 0.1 % (0.0-1.5); BG OXYGEN SATURATION 96.5 % (92.0-98.5); BG OXYHEMOGLOBIN 95.8 % (94.0-97.0); BG PCO2 37.9 mmHg (35.0-45.0); BG PH 7.442 (7.350-7.450); BG PO2 91.9 mmHg (75.0-100.0); BG SAMPLE SITE RIGHT RADIAL; BG TOTAL HEMOGLOBIN 5.4 g/dL (12.0-18.0); BG VENT MODE NASAL CANNULA
[2019-10-19] MEDS: SILDENAFIL CITRATE 20MG TABLET PO SCH ×2 (10:33→21:00)
[2019-10-19] MEDS: PANTOPRAZOLE SODIUM 40 MG/VIAL IV SCH ×2 (10:34→21:00)
[2019-10-19 18:11] LABS: HEPATITIS B SURFACE AB < 3.1 mIU/mL
[2019-10-19 18:17] LABS: HEPATITIS B SURFACE ANTIGEN NEGATIVE
[2019-10-19 18:45] LABS: HEPATITIS A AB IGM NEGATIVE (NEGATIVE)
[2019-10-19] MEDS: CEFEPIME 1,000 MG in DEXTROSE 5% WATER 50 ML IV SCH (20:30)
[2019-10-19] MEDS: EPOETIN ALFA 10000UNITS/ML VIAL SUBCUT SCH (21:55)
[2019-10-20] VITALS (59 sets, daily range): BP systolic 91–145; BP diastolic 30–76
[2019-10-20] MEDS: INSULIN LISPRO 100 UNITS/ML SUBCUT SCH ×5 (00:05→23:37)
[2019-10-20] MEDS: IPRATROPIUM/ALBUTEROL 0.5-3(2.5)MG/3ML NEB HHN SCH ×4 (01:33→20:22)
[2019-10-20] MEDS: BLOOD SUGAR DIAGNOSTIC STRIP TEST SCH ×5 (05:05→23:37)
[2019-10-20] MEDS: SILDENAFIL CITRATE 20MG TABLET PO SCH (08:52)
[2019-10-20] MEDS: PANTOPRAZOLE SODIUM 40 MG/VIAL IV SCH ×2 (08:52→17:28)
[2019-10-20] MEDS: MIDODRINE HCL 2.5MG TABLET PO SCH ×3 (09:45→17:28)
[2019-10-20 11:03] LABS: BASOPHILS % 0.9 % (0.0-2.0); EOSINOPHILS % 0.3 % (0.0-5.0); MEAN CORPUSCULAR VOLUME 87.1 fL (81.0-99.0); MONOCYTES % 6.6 % (2.0-8.0); NEUTROPHILS % 81.2 % (40.0-76.0); PLATELET 82 x1000/uL (130-400); RED BLOOD CELL COUNT 1.75 mill/uL (4.2-5.4); RED CELL DISTRIBUTION WIDTH 18.9 % (11.6-14.6)
[2019-10-20 11:07] LABS: HEMATOCRIT. 15.2 % (36.0-48.0); HEMOGLOBIN. 4.9 g/dL (12.0-16.0)
[2019-10-20] MEDS ORDERED: POTASSIUM CHLORIDE 20MEQ/PACKET PO NR (13:00)
[2019-10-20] MEDS ORDERED: ALBUMIN HUMAN 25GM/500ML (5%) IV NR (14:00)
[2019-10-20] MEDS: CEFEPIME 1,000 MG in DEXTROSE 5% WATER 50 ML IV SCH (17:28)
[2019-10-20] MEDS: EPOETIN ALFA 10000UNITS/ML VIAL SUBCUT SCH (21:04)
[2019-10-21] VITALS (41 sets, daily range): BP systolic 105–143; BP diastolic 38–96
[2019-10-21] MEDS: IPRATROPIUM/ALBUTEROL 0.5-3(2.5)MG/3ML NEB HHN SCH ×3 (01:12→14:32)
[2019-10-21] MEDS: BLOOD SUGAR DIAGNOSTIC STRIP TEST SCH ×3 (05:17→17:12)
[2019-10-21] MEDS: INSULIN LISPRO 100 UNITS/ML SUBCUT SCH ×3 (05:18→17:11)
[2019-10-21 05:53] LABS: BASOPHILS % 1.2 % (0.0-2.0); EOSINOPHILS % 0.2 % (0.0-5.0); LYMPHOCYTES % 16.2 % (20.0-50.0); MEAN CORPUSCULAR HEMOGLOBIN 28.5 pg (28.0-32.0); MEAN CORPUSCULAR VOLUME 87.6 fL (81.0-99.0); MONOCYTES % 10.9 % (2.0-8.0); NEUTROPHILS % 71.5 % (40.0-76.0); PLATELET 98 x1000/uL (130-400); RED BLOOD CELL COUNT 1.68 mill/uL (4.2-5.4); RED CELL DISTRIBUTION WIDTH 19.2 % (11.6-14.6)
[2019-10-21 06:14] LABS: HEMATOCRIT. 14.7 % (36.0-48.0); HEMOGLOBIN. 4.8 g/dL (12.0-16.0)
[2019-10-21 06:22] LABS: PHOSPHORUS 3.5 mg/dL (2.5-4.9)
[2019-10-21] MEDS: MIDODRINE HCL 2.5MG TABLET PO SCH ×3 (08:45→17:12)
[2019-10-21] MEDS: PANTOPRAZOLE SODIUM 40 MG/VIAL IV SCH ×2 (08:45→17:12)
[2019-10-21 13:07] LABS: FOLATE HEMATOCRIT 15.5 % (34.0-46.6); FOLATE RBC 1548 ng/mL (>498)
[2019-10-21] MEDS: CEFEPIME 1,000 MG in DEXTROSE 5% WATER 50 ML IV SCH (17:11)
[2019-10-21] MEDS: ACETAMINOPHEN 325MG TABLET PO PRN (20:20)
[2019-10-21] MEDS: EPOETIN ALFA 10000UNITS/ML VIAL SUBCUT SCH (21:12)
[2019-10-22 00:12] VITALS: BP 118/51
[2019-10-22] MEDS: IPRATROPIUM/ALBUTEROL 0.5-3(2.5)MG/3ML NEB HHN SCH ×2 (00:30→20:55)
[2019-10-22] MEDS: BLOOD SUGAR DIAGNOSTIC STRIP TEST SCH ×4 (00:51→18:19)
[2019-10-22] MEDS: INSULIN LISPRO 100 UNITS/ML SUBCUT SCH ×4 (01:01→18:31)
[2019-10-22 04:00] VITALS: BP 104/41
[2019-10-22 08:00] VITALS: BP 132/54
[2019-10-22] MEDS: PANTOPRAZOLE SODIUM 40 MG/VIAL IV SCH ×2 (09:19→18:06)
[2019-10-22] MEDS: MIDODRINE HCL 2.5MG TABLET PO SCH ×3 (09:36→17:00)
[2019-10-22 12:00] VITALS: BP_SYST 132; BP_DIAS 42; BP_DIAS 54
[2019-10-22 12:23] LABS: MEAN PLATELET VOLUME 9.2 fl (7.4-10.4); PLATELET 101 x1000/uL (130-400); RED BLOOD CELL COUNT 1.61 mill/uL (4.2-5.4); RED CELL DISTRIBUTION WIDTH 19.4 % (11.6-14.6)
[2019-10-22 12:45] LABS: HEMOGLOBIN. 4.5 g/dL (12.0-16.0)
[2019-10-22 12:46] LABS: HEMATOCRIT. 14.2 % (36.0-48.0)
[2019-10-22 12:50] LABS: PHOSPHORUS 3.7 mg/dL (2.5-4.9)
[2019-10-22 13:16] LABS: NUCLEATED RED BLOOD CELLS 3 /100 WBC; PLATELET ESTIMATE DECREASED
[2019-10-22] MEDS ORDERED: HYDRALAZINE 10 MG in SODIUM CHLORIDE 0.9% 49.5 ML IV PRN (15:15)
[2019-10-22 16:00] VITALS: BP 140/53
[2019-10-22] MEDS: CEFEPIME 1,000 MG in DEXTROSE 5% WATER 50 ML IV SCH (18:18)
[2019-10-22 20:06] VITALS: BP 101/37
[2019-10-22] MEDS: EPOETIN ALFA 10000UNITS/ML VIAL SUBCUT SCH (22:11)
[2019-10-23] VITALS: BP 129/33
[2019-10-23] MEDS: INSULIN LISPRO 100 UNITS/ML SUBCUT SCH ×4 (01:14→18:11)
[2019-10-23 04:35] VITALS: BP 127/41
[2019-10-23] MEDS: BLOOD SUGAR DIAGNOSTIC STRIP TEST SCH ×5 (06:13→23:57)
[2019-10-23 07:29] LABS: MEAN CORPUSCULAR HEMOGLOBIN 28.1 pg (28.0-32.0); MEAN CORPUSCULAR VOLUME 87.6 fL (81.0-99.0); MEAN PLATELET VOLUME 9.2 fl (7.4-10.4); PLATELET 117 x1000/uL (130-400); RED BLOOD CELL COUNT 1.69 mill/uL (4.2-5.4); RED CELL DISTRIBUTION WIDTH 20.3 % (11.6-14.6)
[2019-10-23 08:00] VITALS: BP 127/44
[2019-10-23] MEDS: IPRATROPIUM/ALBUTEROL 0.5-3(2.5)MG/3ML NEB HHN SCH ×3 (08:05→21:40)
[2019-10-23] MEDS: PANTOPRAZOLE SODIUM 40 MG/VIAL IV SCH ×2 (08:11→17:49)
[2019-10-23] MEDS: MIDODRINE HCL 2.5MG TABLET PO SCH ×3 (08:18→17:49)
[2019-10-23 09:27] LABS: HEMATOCRIT. 14.8 % (36.0-48.0); HEMOGLOBIN. 4.8 g/dL (12.0-16.0)
[2019-10-23 12:00] VITALS: BP 125/50
[2019-10-23] MEDS ORDERED: POTASSIUM CHLORIDE INJ 40 MEQ in DEXT 5% WATER 250 ML IV NR (13:00)
[2019-10-23 16:00] VITALS: BP 141/45
[2019-10-23] MEDS ORDERED: HYDRALAZINE 20MG/ML VIAL IV PRN (19:30)
[2019-10-23 20:00] VITALS: BP 140/55
[2019-10-24] VITALS: BP 147/40
[2019-10-24] MEDS: ACETAMINOPHEN 325MG TABLET PO PRN (00:32)
[2019-10-24] MEDS: IPRATROPIUM/ALBUTEROL 0.5-3(2.5)MG/3ML NEB HHN SCH ×4 (01:07→23:15)
[2019-10-24 04:30] VITALS: BP 141/46
[2019-10-24] MEDS: BLOOD SUGAR DIAGNOSTIC STRIP TEST SCH ×3 (06:07→18:11)
[2019-10-24] MEDS: INSULIN LISPRO 100 UNITS/ML SUBCUT SCH ×4 (06:07→18:00)
[2019-10-24 08:00] VITALS: BP 141/48
[2019-10-24] MEDS: PANTOPRAZOLE SODIUM 40 MG/VIAL IV SCH ×2 (09:35→18:11)
[2019-10-24] MEDS: MIDODRINE HCL 2.5MG TABLET PO SCH ×3 (09:35→17:00)
[2019-10-24 10:12] LABS: PLATELET ESTIMATE SLIGHTLY DECREASED
[2019-10-24 12:00] VITALS: BP 133/44
[2019-10-24 16:00] VITALS: BP 118/39
[2019-10-24 20:00] VITALS: BP 130/52
[2019-10-24] MEDS: RISPERIDONE 0.5MG TABLET PO SCH (20:00)
[2019-10-25] MEDS: BLOOD SUGAR DIAGNOSTIC STRIP TEST SCH ×4 (00:01→17:29)
[2019-10-25 00:13] VITALS: BP 123/54
[2019-10-25 04:30] VITALS: BP 130/52
[2019-10-25] MEDS: INSULIN LISPRO 100 UNITS/ML SUBCUT SCH ×4 (05:45→17:47)
[2019-10-25 07:59] VITALS: BP 111/73
[2019-10-25] MEDS: IPRATROPIUM/ALBUTEROL 0.5-3(2.5)MG/3ML NEB HHN SCH ×3 (08:31→21:43)
[2019-10-25] MEDS: PANTOPRAZOLE SODIUM 40 MG/VIAL IV SCH ×2 (09:16→17:41)
[2019-10-25] MEDS: MIDODRINE HCL 2.5MG TABLET PO SCH ×3 (09:20→17:41)
[2019-10-25] MEDS: RISPERIDONE 0.5MG TABLET PO SCH (09:20)
[2019-10-25 12:18] VITALS: BP 135/51
[2019-10-25 17:19] VITALS: BP 120/54
[2019-10-25 20:00] VITALS: BP 123/40
[2019-10-26] VITALS: BP 114/82
[2019-10-26] MEDS: BLOOD SUGAR DIAGNOSTIC STRIP TEST SCH ×4 (00:02→18:10)
[2019-10-26] MEDS: INSULIN LISPRO 100 UNITS/ML SUBCUT SCH ×4 (00:05→18:08)
[2019-10-26] MEDS: IPRATROPIUM/ALBUTEROL 0.5-3(2.5)MG/3ML NEB HHN SCH ×4 (03:10→21:33)
[2019-10-26 04:00] VITALS: BP 105/41
[2019-10-26] MEDS: ACETAMINOPHEN 325MG TABLET PO PRN (05:09)
[2019-10-26 08:00] VITALS: BP 126/66
[2019-10-26] MEDS: PANTOPRAZOLE SODIUM 40 MG/VIAL IV SCH ×2 (08:30→17:55)
[2019-10-26] MEDS: RISPERIDONE 0.5MG TABLET PO SCH (08:30)
[2019-10-26] MEDS: MIDODRINE HCL 2.5MG TABLET PO SCH ×3 (08:30→17:55)
[2019-10-26 12:00] VITALS: BP 118/73
[2019-10-26] MEDS ORDERED: LEVOFLOXACIN 250MG PREMIX 50 ML IV SCH (14:00)
[2019-10-26 16:00] VITALS: BP 101/55
[2019-10-26 20:00] VITALS: BP 119/51
[2019-10-27] VITALS: BP 104/43
[2019-10-27] MEDS: BLOOD SUGAR DIAGNOSTIC STRIP TEST SCH ×4 (00:26→17:18)
[2019-10-27] MEDS: INSULIN LISPRO 100 UNITS/ML SUBCUT SCH ×4 (00:27→17:27)
[2019-10-27] MEDS: IPRATROPIUM/ALBUTEROL 0.5-3(2.5)MG/3ML NEB HHN SCH ×3 (01:21→13:19)
[2019-10-27 04:00] VITALS: BP 114/43
[2019-10-27 08:00] VITALS: BP 112/41
[2019-10-27] MEDS: RISPERIDONE 0.5MG TABLET PO SCH (09:03)
[2019-10-27] MEDS: PANTOPRAZOLE SODIUM 40 MG/VIAL IV SCH ×2 (09:03→17:26)
[2019-10-27] MEDS: MIDODRINE HCL 2.5MG TABLET PO SCH ×3 (09:04→17:26)
[2019-10-27 09:57] LABS: MEAN CORPUSCULAR HEMOGLOBIN 27.3 pg (28.0-32.0); MEAN CORPUSCULAR VOLUME 93.6 fL (81.0-99.0); MEAN PLATELET VOLUME 8.3 fl (7.4-10.4); PLATELET 133 x1000/uL (130-400); RED BLOOD CELL COUNT 1.98 mill/uL (4.2-5.4); RED CELL DISTRIBUTION WIDTH 21.2 % (11.6-14.6)
[2019-10-27 10:04] LABS: HEMOGLOBIN. 5.4 g/dL (12.0-16.0)
[2019-10-27 10:05] LABS: HEMATOCRIT. 18.6 % (36.0-48.0)
[2019-10-27 12:00] VITALS: BP 110/44
[2019-10-27] MEDS ORDERED: MORPHINE SULFATE 2 MG/ML CPJ (NOT FOR IM USE) IV PRN (15:00)
[2019-10-27] MEDS ORDERED: LORAZEPAM 2MG/ML CPJ IV PRN (15:00)
[2019-10-27 16:00] VITALS: BP 127/53
[2019-10-27 18:39] LABS: NUCLEATED RED BLOOD CELLS 1 /100 WBC; PLATELET ESTIMATE NORMAL
[2019-10-27 19:48] VITALS: BP 104/38
== END 2019-10-27 20:25 | disposition hospice, home (50) | DRG 870 ==
LOC: ER 15:38 → MICUSO 18:58 → EDBEDREQ 19:01 → MICUSO 10-09 00:51 → CVICU 10-11 23:55 → UNDODISIN 10-19 15:52 → 6EST 10-21 21:45 → 6WST 10-22 18:42
PROVIDERS: ADMIT Ophthalmology; ATTEND Ophthalmology
PROC: 02HV33Z Insertion of Infusion Device into Superior Vena Cava, Percutaneous Approach (ICD-10-PCS; 2019-10-08)
PROC: B548ZZA Ultrasonography of Superior Vena Cava, Guidance (ICD-10-PCS; 2019-10-08)
PROC: 5A1D70Z Performance of Urinary Filtration, Intermittent, Less than 6 Hours Per Day (ICD-10-PCS; 2019-10-08)
PROC: 5A1955Z Respiratory Ventilation, Greater than 96 Consecutive Hours (ICD-10-PCS; principal; 2019-10-09)
PROC: 0BH17EZ Insertion of Endotracheal Airway into Trachea, Via Natural or Artificial Opening (ICD-10-PCS; 2019-10-09)
PROC: 5A1D70Z Performance of Urinary Filtration, Intermittent, Less than 6 Hours Per Day (ICD-10-PCS; 2019-10-09)
PROC: 5A1D70Z Performance of Urinary Filtration, Intermittent, Less than 6 Hours Per Day (ICD-10-PCS; 2019-10-10)
PROC: 05HY33Z Insertion of Infusion Device into Upper Vein, Percutaneous Approach (ICD-10-PCS; 2019-10-11)
PROC: B54NZZA Ultrasonography of Left Upper Extremity Veins, Guidance (ICD-10-PCS; 2019-10-11)
PROC: 5A1D70Z Performance of Urinary Filtration, Intermittent, Less than 6 Hours Per Day (ICD-10-PCS; 2019-10-12)
PROC: 5A1D70Z Performance of Urinary Filtration, Intermittent, Less than 6 Hours Per Day (ICD-10-PCS; 2019-10-14)
PROC: 5A1D70Z Performance of Urinary Filtration, Intermittent, Less than 6 Hours Per Day (ICD-10-PCS; 2019-10-16)
PROC: 5A1D70Z Performance of Urinary Filtration, Intermittent, Less than 6 Hours Per Day (ICD-10-PCS; 2019-10-19)
PROC: 5A1D70Z Performance of Urinary Filtration, Intermittent, Less than 6 Hours Per Day (ICD-10-PCS; 2019-10-21)
DX: A41.1 Sepsis due to other specified staphylococcus (principal); I21.4 Non-ST elevation (NSTEMI) myocardial infarction; K72.00 Acute and subacute hepatic failure without coma; R65.21 Severe sepsis with septic shock; D65 Disseminated intravascular coagulation [defibrination syndrome]; E11.10 Type 2 diabetes mellitus with ketoacidosis without coma; I50.33 Acute on chronic diastolic (congestive) heart failure; E43 Unspecified severe protein-calorie malnutrition; J18.9 Pneumonia, unspecified organism; J96.01 Acute respiratory failure with hypoxia; N18.6 End stage renal disease; G93.41 Metabolic encephalopathy; N17.9 Acute kidney failure, unspecified; E87.0 Hyperosmolality and hypernatremia; E87.2 Acidosis; M62.82 Rhabdomyolysis; N39.0 Urinary tract infection, site not specified; D61.818 Other pancytopenia; G25.9 Extrapyramidal and movement disorder, unspecified; K92.2 Gastrointestinal hemorrhage, unspecified; Z66 Do not resuscitate; E83.39 Other disorders of phosphorus metabolism; E11.9 Type 2 diabetes mellitus without complications; E87.5 Hyperkalemia; D63.8 Anemia in other chronic diseases classified elsewhere; E11.22 Type 2 diabetes mellitus with diabetic chronic kidney disease; E66.9 Obesity, unspecified; E83.42 Hypomagnesemia; E83.51 Hypocalcemia; E87.6 Hypokalemia; F03.90 Unspecified dementia, unspecified severity, without behavioral disturbance, psychotic disturbance, mood disturbance, and anxiety; I27.21 Secondary pulmonary arterial hypertension; L89.159 Pressure ulcer of sacral region, unspecified stage; I27.81 Cor pulmonale (chronic); I48.91 Unspecified atrial fibrillation; I95.9 Hypotension, unspecified; K86.89 Other specified diseases of pancreas; Z20.828 Contact with and (suspected) exposure to other viral communicable diseases; Z51.5 Encounter for palliative care; Z90.49 Acquired absence of other specified parts of digestive tract; Z99.2 Dependence on renal dialysis; Z79.2 Long term (current) use of antibiotics; Z79.1 Long term (current) use of non-steroidal anti-inflammatories (NSAID); Z68.30 Body mass index [BMI] 30.0-30.9, adult
CPT/HCPCS: 31500; 36415; 36600; 71045; 76700; 76937; 78580; 80048; 80053; 80061; 80076; 80202; 81003; 82010; 82140; 82270; 82308; 82375; 82533; 82550; 82553; 82607; 82728; 82747; 82805; 82962; 83036; 83540; 83550; 83605; 83615; 83735; 83880; 84100; 84132; 84134; 84145; 84443; 84478; 84484; 85014; 85025; 85027; 85379; 86140; 86141; 86705; 86706; 86709; 86803; 86850; 86900; 87077; 87186; 87340; 87493; 92610; 93005; 93306; 93970; 94002; 94640; 97162; 99291; C1725; C1752; C1769; C9113; G0378; J0360; J0456; J0610; J0692; J0696; J0885; J1650; J1815; J1956; J2270; J2370; J2543; J2704; J3370; J3475; J3480; J3490; J7030; J7050; J7060; J7070; P9041; P9047; U0003-CS